=== PATIENT | female | born 1950 | race Caucasian/White ===

== ENCOUNTER 2017-02-07 10:18 | Emergency (ER) | payer OTHER ==
[~2017-02-07] VITALS: Ht 165.1 cm; Wt 75.0 kg
[2017-02-07 10:25] VITALS: BP 151/83; PULSE 102; RESP 20; TEMP 97.6; O2SAT 100
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
[2017-02-07] MEDS ORDERED: IBUP-232 PO (12:12)
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
[2017-02-07] MEDS ORDERED: CYCLOBENZAPRINE HCL 10 MG TAB PO ONE (12:30)
[2017-02-07] MEDS ORDERED: NAPROXEN 500 MG TAB PO ONE (12:30)
== END 2017-02-07 12:38 | disposition home or self-care (01) ==
LOC: NEPD 10:18
DX: S13.9XXA Sprain of joints and ligaments of unspecified parts of neck, initial encounter (principal); V49.59XA Passenger injured in collision with other motor vehicles in traffic accident, initial encounter
CPT/HCPCS: 70450; 71010; 72125; 99285